=== PATIENT | female | born 1990 | race Caucasian/White ===

== ENCOUNTER 2016-08-03 10:17 | Emergency (ER) | payer SELFPAY ==
[~2016-08-03] VITALS: Ht 167.6 cm; Wt 72.7 kg
[2016-08-03 10:20] VITALS: BP 141/86
[2016-08-03] MEDS ORDERED: LIDOCAINE HCL BUFFERED 1% 20 ML VIAL INJ ONE (12:00)
== END 2016-08-03 12:46 | disposition left against medical advice (07) ==
LOC: EMS 10:19
DX: N75.0 Cyst of Bartholin's gland (principal); Z53.21 Procedure and treatment not carried out due to patient leaving prior to being seen by health care provider
CPT/HCPCS: J3490